=== PATIENT | female | born 1955 | race Caucasian/White ===

== ENCOUNTER → 2020-05-29 08:01 | Outpatient (CLI) | payer OTHER, SELFPAY ==
[2020-05-29 08:14] VITALS: BP 105/67; PULSE 62; RESP 18; TEMP 36.4; O2SAT 98
[2020-05-29 08:46] VITALS: BP 111/53; PULSE 62; RESP 12; O2SAT 98
--- NOTE | 2020-05-29 08:49 | PDOC.PAIN ---
Pain Clinic Procedure Note Procedure Note Procedure Note: Date of service: 05/29/20 Lumbar/Sacral Medial Branch Blocks JABIER RENO has been [facility] the [facility] for lumbar/sacral medial branch blocks. COMMENTS: She was evaluated in our clinic on 04/24/20. She had LMBBs and RFA in [place] several years ago with excellent [facility] long term care relief. She has an allergy to Iodine contrast. She has held the Plavix and ASA. She will restart the Plavix tonight at 9PM and the ASA tomorrow morning. DX: Lumbosacral spondylosis without myelopathy Patient was interviewed and the medical record reviewed. There were no medical, pharmacologic, radiographic or other structural contraindications to attempting fluoroscopically guided local anesthetic lumbar/sacral medial branch blocks. Risks and expected side effects as well as potential benefit of the procedure were reviewed and voiced concerns addressed. The printed consent form was signed and witnessed. Standard time-out procedure was performed. Patient was placed in the prone position on the fluoroscopy table and automated blood pressure cuff and pulse oximeter applied. The skin entry points for approaching the anatomic target points of the segmental medial branches of bilateral L3-L5DR were identified with fluoroscopy and marked. Following thorough Chlorhexadine preparation of the skin and draping, a 25 gauge 3.5 spinal needle was placed under fluoroscopic guidance down on to the target point for each respective segmental medial branch.Position was confirmed in A/P, oblique and lateral views. At this point I injected 0.5cc of 0.5% Bupivacaine at each segmental sensory nerve. Vital signs were stable throughout the procedure and were as recorded in the docflowsheet by the nursing staff. Follow up plans and appointments were discussed and was instructed to keep careful note of how the usual pain was modified by these injections. Specifically was asked to keep a pain diary for the next 24 hours using a numeric pain scale of 0-10 and report these results at the follow-up visit. Post procedure instruction was given as documented in the nursing documentation and having met discharge criteria. Patient was discharged from the [facility]. Based on the medial branches blocked today, if the patient has adequate relief and we are able to proceed to radiofrequency ablation, the treatment should result in the denervation of the bilateral L4-L5 and L5-S1 FACET JOINTS. We would expect to denervate a total of 4 facets during the radiofrequency ablation. COMMENTS: She will call back with her 1-4 hour post-procedure pain scores for the low back. Jessee Mayers DO, MPH Pain Management CC: Loida Garcia
--- NOTE | 2020-05-29 08:50 | DI.RAD_ITS ---
EXAM: XR PAIN CLINIC LUMBAR SP 2V CLINICAL HISTORY: DX: Lumbar Spondylosis,LUMBAR MEDIAL BRANCH BLOCK TECHNIQUE: Fluoroscopy was provided for the referring physician for guidance with performing injecti on procedure. COMPARISON: No exams were available for comparison FINDINGS: Please see procedure note for details. Fluoro time: 34 seconds RADIATION DOSE DELIVERED:
[2020-05-29] MEDS: Bupivacaine 0.5% Pres-Free 10 ML VIAL IJ (09:06)
== END ==
PROVIDERS: PCP Family Medicine; Visit Provider Preventive Medicine Occupational Medicine
DX: M47.817 Spondylosis without myelopathy or radiculopathy, lumbosacral region (principal)
CPT/HCPCS: 64493; 64494; 72100

== ENCOUNTER 2020-07-05 10:39 | Outpatient (CLI) | payer OTHER, SELFPAY ==
--- NOTE | 2020-07-05 06:00 | DI.RAD_ITS ---
EXAM: XR PAIN CLINIC LUMBAR SP 2V CLINICAL HISTORY: Dx: Lumbar Spondylosis TECHNIQUE: 2D and realtime digital imaging was performed. CONTRAST MATERIAL: Refer to procedure report. COMPARISON: No exams were available for comparison FINDINGS: Fluoroscopy was provided for Dr. Mayers during the performance of a bilateral medial branch block. Pl ease refer to the procedure report for complete details. Fluoro time: 47.6 seconds IMPRESSION:
[2020-07-05 10:54] VITALS: BP 110/64; PULSE 60; RESP 17; TEMP 36.5; O2SAT 96
[2020-07-05 11:29] VITALS: BP 113/62; PULSE 60; RESP 14; O2SAT 99
[2020-07-05] MEDS: Lidocaine 2% Pres-Free 5 ML VIAL IJ (11:30)
--- NOTE | 2020-07-05 11:59 | PDOC.PAIN ---
Pain Clinic Procedure Note Procedure Note Procedure Note: Date of service: July 05, 2020 Lumbar/Sacral Medial Branch Blocks JABIER RENO has been referred to the [facility] for lumbar/sacral medial branch blocks. COMMENTS: She did very well with the first LMBBs. She is allergic to Iodine contrast, thus this procedure will be completed without contrast enhancement. Dx: Lumbosacral spondylosis without myelopathy Patient was interviewed and the medical record reviewed. There were no medical, pharmacologic, radiographic or other structural contraindications to attempting fluoroscopically guided local anesthetic lumbar/sacral medial branch blocks. Risks and expected side effects as well as potential benefit of the procedure were reviewed and voiced concerns addressed. The printed consent form was signed and witnessed. Standard time-out procedure was performed. Patient was placed in the prone position on the fluoroscopy table and automated blood pressure cuff and pulse oximeter applied. The skin entry points for approaching the anatomic target points of the segmental medial branches of bilateral L3-L5DR were identified with fluoroscopy and marked. Following thorough Chlorhexadine preparation of the skin and draping and 1% lidocaine infiltration of the skin entry points and subcutaneous tissues, a 25 gauge 3.5 spinal needle was placed under fluoroscopic guidance down on to the target point for each respective segmental medial branch.Position was confirmed in A/P, oblique and lateral views. At this point I injected 0.5ml of 2% Lidocaine at each segmental nerve. Vital signs were stable throughout the procedure and were as recorded in the docflowsheet by the nursing staff. Follow up plans and appointments were discussed and was instructed to keep careful note of how the usual pain was modified by these injections. Specifically was asked to keep a pain diary for the next 24 hours using a numeric pain scale of 0-10 and report these results at the follow-up visit. Post procedure instruction was given as documented in the nursing documentation and having met discharge criteria. Patient was discharged from the [facility]. Based on the medial branches blocked today, if the patient has adequate relief and we are able to proceed to radiofrequency ablation, the treatment should result in the denervation of the bilateral L4-L5 and L5-S1 FACET JOINTS. We would expect to denervate a total of 4 facets during the radiofrequency ablation. COMMENTS: She will call back with the 1-4 hour post-procedure pain scores. Jessee Mayers DO, MPH Pain Management CC: Loida Garcia
== END 2020-07-05 10:40 | disposition home or self-care (01) ==
LOC: PC 10:40
PROVIDERS: PCP Family Medicine; Visit Provider Preventive Medicine Occupational Medicine
DX: M47.817 Spondylosis without myelopathy or radiculopathy, lumbosacral region (principal)
CPT/HCPCS: 64493; 64494; 72100

== ENCOUNTER 2020-09-11 12:47 | Outpatient (CLI) | payer OTHER, SELFPAY ==
[2020-09-11 12:55] VITALS: BP 128/66; PULSE 62; RESP 17; TEMP 36.5; O2SAT 98
[2020-09-11] MEDS: Lactated Ringers 1,000 ML 80 ML IV (13:26)
[2020-09-11] MEDS: fentaNYL 100 MCG/2 ML VIAL IVP (13:40)
[2020-09-11] MEDS: Midazolam 2 MG/2 ML VIAL IVP (13:40)
[2020-09-11] MEDS: methylPREDNISolone ACETATE 40 MG/ML VIAL IJ (14:15)
[2020-09-11] MEDS: Lidocaine 2% Pres-Free 5 ML VIAL IJ (14:15)
[2020-09-11] MEDS: Lidocaine 1% Pres-Free 30 ML VIAL IJ (14:15)
[2020-09-11] MEDS: Bupivacaine 0.5% Pres-Free 10 ML VIAL IJ (14:16)
--- NOTE | 2020-09-11 14:17 | PDOC.PAIN_ITS ---
Pain Clinic Procedure Note Procedure Note Procedure Note: Bilateral Lumbar Radiofrequency with Coolief Machine PROCEDURE NOTE Date of Service: September 11, 2020 Patient: JABIER RENO Provider: Merlene Cabrera MD Pre Operative Diagnosis: lumbar spondylosis Post Operative Diagnosis: same as above PROCEDURE: Radiofrequency Ablation of medial branches - L3, L4, L5-DR Bilaterally JABIER RENO was brought into the fluoroscopy suite and positioned into the prone position on the fluoroscopy table and allowed to adjust to a position of comfort. A grounding pad was placed on the right thigh. The lumbar region was widely prepped with a chloraprep solution, allowed to air dry and draped in standard sterile surgical fashion. Local anesthesia was provided by 15 mL of 1% lidocaine delivered with a 25g needle. A 17g 100mm radiofrequency introducer needle was placed to the planned anatomic targets guided with intermittent fluoroscopy with a perpendicular approach to terminally place at the junction of the superior articular process and the transverse process of the bilateral L3, L4, and the base of the sacral ala on the bilateral for the L5 medial branch nerve. The stylets were removed and radiofrequency probes with a 4mm active tip were then inserted. Needle tip position of the probes was verified in the AP, oblique, and lateral views. At each site, the medial branch nerve was stimulated at 2 Hz to a maximum 1-2 volts determined to finalize safe needle and electrode placement. The patient was awake and responsive during this portion of the procedure. Each target was anesthetized with 1mL of 2% lidocaine for anesthesia for lesioning and then each target was lesioned at 80 degrees Celsius for 2 minutes and 30 seconds. Tissue impedences were noted to be between 250 and 500 Ohms. Electrodes and needles were then removed and bandages placed over the needle placement sites, the patient then returned to the supine position on a stretcher and transported to the recovery room without hemodynamic, neurologic, or allergic reactions. Fluoroscopic images were printed for hard copy recording and digitally archived. POST PROCEDURE EVALUATION: IMPRESSION: 1. Patient received total of 1mg of IV versed and 25mcg of IV Fentanyl for this procedure 2. She also received a mixture of 0.5% Bupivocaine (2cc) and 40mg/ml depomedrol (1mg) post RF lesioning, 0.5cc solution at each site, to decrease risk of post- RF neuritis 3. Pre-procedure VAS score 4/10, post-procedure VAS pain level 0/10. Follow up plans and appointments were discussed with the JABIER . Post procedure instruction was given as documented in nursing documentation and having met discharge criteria, JABIER was discharged from the [facility]. COMMENTS: No complications. F/U with our office as needed. I personally performed this entire procedure. Merlene Cabrera MD Attending Physician
[2020-09-11 14:18] VITALS: BP 142/62; PULSE 65; RESP 14; O2SAT 99
--- NOTE | 2020-09-11 14:30 | DI.RAD_ITS ---
Exam(s) XR PAIN CLINIC LUMBAR SP 2V EXAM: XR PAIN CLINIC LUMBAR SP 2V CLINICAL HISTORY: Dx: Lumbar Spondylosis TECHNIQUE: 2D and realtime digital imaging was performed. COMPARISON: No exams were available for comparison FINDINGS: C-arm fluoroscopy was utilized by Dr. Cabrera during bilateral RF ablation performed at L3-4 L4-5 and L5-S 1. Hard copy show needle placement at each of these sites. IMPRESSION: RADIATION DOSE DELIVERED: shauna Gonzalez=19.9 mGy mGy
== END 2020-09-11 12:48 | disposition home or self-care (01) ==
LOC: PC 12:48
PROVIDERS: PCP Family Medicine; Visit Provider Internal Medicine
DX: M47.816 Spondylosis without myelopathy or radiculopathy, lumbar region (principal)
CPT/HCPCS: 64635; 64636; 72100; J1030; J2250; J3010

== ENCOUNTER 2020-10-15 11:11 | Day surgery (SDC) | payer OTHER, SELFPAY ==
--- NOTE | 2020-10-14 22:09 | HPE_ITS ---
Date of service: 10/15/20 Assessment and Plan Assessment and plan (1) Posterior subcapsular age-related cataract of left eye: Status: Acute Assessment and plan: Visually significant cataract, plan cataract extraction with lens implantation (2) Cortical cataract of left eye: Status: Acute Assessment and plan: Visually significant cataract, plan cataract extraction with lens implantation (3) Nuclear sclerotic cataract of left eye: Status: Acute Assessment and plan: Visually significant cataract, plan cataract extraction with lens implantation History of Present Illness History of Present Illness Chief Complaint: Decreased vision left eye Narrative: Progressive painless decreased vision left eye [facility] Medical History Atherosclerosis of coronary artery without angina pectoris Atrophic vaginitis Breast lump Chronic obstructive lung disease Depressive disorder Hidradenitis suppurativa Hx of fracture of clavicle Left plate and screws Hyperlipidemia Hypersomnia Hypertensive disorder Low back pain Myocardial infarction 2004-/U with cardiology Dr. Cabral 08/2020 Nicotine dependence Obstructive sleep apnea syndrome Pseudocholinesterase deficiency Pt. states the only thing i know i can't have is Anectine (succinylcholine) Psychophysiologic insomnia Surgical History History of cardiac catheterization 2009, 2014, 2018 History of cataract surgery History of colonoscopy History of esophagogastroduodenoscopy (EGD) History of hysterectomy History of nasal surgery History of surgery stent replacement in 2014 History of tubal ligation Social History Smoking/Tobacco Use Status: Current every day Tobacco Type: cigarettes Smoking risk assessment performed?: Yes Alcohol Intake: never Drug use: Never Substance use type: does not use Household members: significant other Housing: apartment Number of Children: 4 current occupation: [employer] What type of physical activity do you participate in: walking and independent ambulation Do you feel safe at home: Yes Do you feel safe in your relationship?: Yes Meds Allergies and Home Medications Allergies Allergy/AdvReac Type Severity Reaction Status Date / Time shellfish derived Allergy Severe Anaphylaxsi Unverified 10/12/20 09:00 s Iodinated Contrast Media Allergy Unknown Hives Unverified 10/12/20 09:00 Penicillins Allergy Unknown Hives Unverified 10/12/20 09:00 succinylcholine Allergy Unknown Other (See Unverified 10/12/20 09:00 [From Anectine] Comment) Home Medications Medication Instructions Recorded Confirmed Type albuterol sulfate 2 puff INHALATION Q6H PRN 03/14/20 10/12/20 History amlodipine 10 mg PO DAILY 03/14/20 10/12/20 History aspirin [Aspir-81] 81 mg PO DAILY 03/14/20 10/12/20 History atorvastatin 80 mg PO DAILY 03/14/20 10/12/20 History bupropion HCl 300 mg PO QAM 03/14/20 10/12/20 History carvedilol 25 mg PO BID 03/14/20 10/12/20 History clopidogrel 75 mg PO DAILY 03/14/20 10/12/20 History cyclobenzaprine 10 mg PO TID 03/14/20 10/12/20 History ezetimibe 10 mg PO DAILY 03/14/20 10/12/20 History hydrochlorothiazide 25 mg PO DAILY 03/14/20 10/12/20 History hydroxyzine HCl 25 mg PO TID PRN 03/14/20 10/12/20 History ibuprofen 800 mg PO TID PRN 03/14/20 10/12/20 History losartan 100 mg PO DAILY 03/14/20 10/12/20 History nitroglycerin 0.4 mg SUBLINGUAL Q5M PRN 03/14/20 10/12/20 History umeclidinium-vilanterol [Anoro 1 inh INHALATION DAILY 03/14/20 10/12/20 History Ellipta] Exam [facility] Head: normocephalic Eyes General: appearance normal, both eyes and all related structures Alignment and Position: alignment normal Eyelids: eyelids normal Conjunctivae: conjunctivae normal Sclera: sclerae normal Cornea: corneas normal Pupils: PERRL EOM: EOM intact bilaterally Direct ophthalmoscopy: anterior chamber normal Other: Left Eye: moderat nuclear with severe cortical and PSC cataract Neck Neck: normal visual inspection and no lymphadenopathy Chest Chest: normal inspection of the chest Resp Effort & Inspection: normal respiratory effort Auscultation: clear to auscultation bilaterally Cardio Rate: regular rate Rhythm: regular rhythm GI Inspection: normal to inspection Auscultation: normal bowel sounds Extrem General: normal to inspection
[2020-10-15] MEDS: Tropicam./Phenyleph. (1/2.5%) 5 ML BTL OS ×3 (11:33→11:47)
[2020-10-15 11:48] VITALS: BP 146/64; PULSE 97; RESP 16; TEMP 36.4; O2SAT 96
--- NOTE | 2020-10-15 12:47 | W.ANESPRE ---
General Info Date of Service Date Performed: 10/15/20 Height: 5 ft 1 in Weight: 74.9 kg Body Mass Index (BMI): 31.1 Surgical Procedure: Operation Date: 10/15/20 12:55 Proposed Procedures Side Surgeon p Cataract Extraction with IOL Implant Left Uri Uribe MD Meds Allergies and Home Medications Allergies Allergy/AdvReac Type Severity Reaction Status Date / Time shellfish derived Allergy Severe Anaphylaxsi Unverified 10/15/20 11:40 s Iodinated Contrast Media Allergy Unknown Hives Unverified 10/15/20 11:40 Penicillins Allergy Unknown Hives Unverified 10/15/20 11:40 succinylcholine Allergy Unknown Other (See Unverified 10/15/20 11:40 [From Anectine] Comment) Home Medication Medication Instructions Recorded albuterol sulfate 2 puff INHALATION Q6H PRN 03/14/20 amlodipine 10 mg PO DAILY 03/14/20 aspirin [Aspir-81] 81 mg PO DAILY 03/14/20 atorvastatin 80 mg PO DAILY 03/14/20 bupropion HCl 300 mg PO QAM 03/14/20 carvedilol 25 mg PO BID 03/14/20 clopidogrel 75 mg PO DAILY 03/14/20 cyclobenzaprine 10 mg PO TID 03/14/20 ezetimibe 10 mg PO DAILY 03/14/20 hydrochlorothiazide 25 mg PO DAILY 03/14/20 hydroxyzine HCl 25 mg PO TID PRN 03/14/20 ibuprofen 800 mg PO TID PRN 03/14/20 losartan 100 mg PO DAILY 03/14/20 nitroglycerin 0.4 mg SUBLINGUAL Q5M PRN 03/14/20 umeclidinium-vilanterol [Anoro 1 inh INHALATION DAILY 03/14/20 Ellipta] Current Visit Medications: Current Medications Generic Name Dose Route Start Last Admin Trade Name Freq PRN Reason Stop Dose Admin Acetaminophen 1,000 mg 10/15/20 06:00 Acetaminophen 500 Mg Tab PO Q4H PRN PRN Miscellaneous Medication 0 ml 10/15/20 06:00 Prednisolone 1%, Moxifloxacin 0.5%, Nepafenac 0.1% 5ml Btl OS DIRECTED SOFY Miscellaneous Medication 0 ml 10/15/20 06:00 10/15/20 11:47 Tropicam./Phenyleph. (1/2.5%) 5 Ml Btl OS 1 drp DIRECTED SOFY Administration Tetracaine HCl 0 ml 10/15/20 06:00 Tetracaine 0.5% 4 Ml Btl OS DIRECTED SOFY PFSH Active Problems Active Problems: Problem Status Onset Code Posterior subcapsular age-related cataract of left eye H25.042 Cortical cataract of left eye H26.9 Nuclear sclerotic cataract of left eye H25.12 Medical History Medical History Atherosclerosis of coronary artery without angina pectoris Atrophic vaginitis Breast lump Chronic obstructive lung disease Depressive disorder Hidradenitis suppurativa Hx of fracture of clavicle Left plate and screws Hyperlipidemia Hypersomnia Hypertensive disorder Low back pain Myocardial infarction 2004-/ with cardiology Dr. Cabral 08/2020 Nicotine dependence Obstructive sleep apnea syndrome Pseudocholinesterase deficiency Pt. states the only thing i know i can't have is Anectine (succinylcholine) Psychophysiologic insomnia Surgical History Surgical History History of cardiac catheterization 2009, 2014, 2018 History of cataract surgery History of colonoscopy History of esophagogastroduodenoscopy (EGD) History of hysterectomy History of nasal surgery History of surgery stent replacement in 2014 History of tubal ligation Tobacco Smoking/Tobacco Use Status: Current every day Tobacco Type: cigarettes Alcohol Alcohol Intake: never Substance Use Substance use: Never Substance use type: does not use Vital Signs and Lab Results Vital Signs Most Recent Vital Signs in EMR: Most Recent Vital Signs Temp Pulse Resp BP Pulse Ox 36.4 C L 97 H 16 146/64 H 96 10/15/20 11:48 10/15/20 11:48 10/15/20 11:48 10/15/20 11:48 10/15/20 11:48 Lab Results Blood Type / Crossmatch: No Data to Display Complete Blood Count: No Data to Display Complete Metabolic Panel: No Data to Display Liver Function Panel: No Data to Display Coagulation Panel: No Data to Display Cardiac Panel: No Data to Display Arterial Blood Gas: No Data to Display Venous Blood Gas: No Data to Display Pancreas Panel: No Data to Display Thyroid Panel: No Data to Display Infectious Disease: No Data to Display Blood Cultures: No Data to Display Toxicology Panel: No Data to Display Anesthesia Assessment and Plan Anesthesia History Personal History: Pseudocholinesterase Deficiency Family History: Pseudocholinesterase Deficiency Exercise Tolerance Exercise Tolerance: Metabolic Equivalents>4 Pertinent Negatives Pertinent Negatives: No Symptoms of GERD, No Major Cardiovascular Symptoms or Complaints, No Major Pulmonary Symptoms or Complaints and No History of CVA/TIA Cardiac & Pulmonary Exam Cardiac Exam: Normal S1/S2 Heart Sounds Pulmonary Exam: Clear Bilateral Breath Sounds Airway Exam Known Difficult Airway: No Mallampati Class: 2 Mouth Opening: Normal (> 3cm) Thyromental Distance: Greater than 3 cm Neck Range of Motion: Full ROM Neck Circumference: Normal Teeth Condition: Normal Dentition ASA Classification ASA Score: ASA 3 Emergency Case?: No NPO Status NPO Status: NPO Clears >2 hours, Solids >8 hours Anesthesia Plan Resuscitation Status: Full Code Anesthesia Technique: MAC Anesthesia Airway Planned: Natural Airway Monitors Used: Standard Monitors
[2020-10-15 12:50] VITALS: BMI 31.1
[2020-10-15] MEDS: Tetracaine 0.5% 4 ML BTL OS (13:03)
[2020-10-15] MEDS: Balanced Salt Soln.-PLUS 500 ML BAG (13:04)
[2020-10-15] MEDS: Lidocaine 1% Pres-Free 5 ML VIAL (13:05)
[2020-10-15] MEDS: Duovisc Viscoelastic System EACH 1 EACH (13:05)
[2020-10-15] MEDS: Lidocaine 2% Jelly 6 ML SYR (13:06)
[2020-10-15] MEDS: Povidone-Iodine Ophth 30 ML BTL (13:07)
[2020-10-15] MEDS: Trypan Blue 0.06% 0.5 ML SYR (13:08)
--- NOTE | 2020-10-15 13:23 | W.PM.DSUDISC ---
Discharge Plan Disposition Patient Disposition: HOME Condition: Good Discharge Details Reason For Visit: CATARACT Attending Provider: Uri Uribe Primary Care Provider: Loida Garcia Home Meds and New Rx's Prescriptions: No Action cyclobenzaprine 10 mg Tablet 10 mg PO TID RF: 0 atorvastatin 80 mg Tablet 80 mg PO DAILY RF: 0 carvedilol 25 mg Tablet 25 mg PO BID RF: 0 clopidogrel 75 mg Tablet 75 mg PO DAILY RF: 0 aspirin [Aspir-81] 81 mg Tablet,Delayed Release (Dr/Ec) 81 mg PO DAILY RF: 0 amlodipine 10 mg Tablet 10 mg PO DAILY RF: 0 albuterol sulfate 90 mcg/actuation Hfa Aerosol Inhaler 2 puff INHALATION Q6H PRNRF: 0 bupropion HCl 300 mg Tablet Extended Release 24 Hr 300 mg PO QAM RF: 0 Anoro Ellipta 62.5-25 mcg/actuation Blister With Device 1 inh INHALATION DAILY RF: 0 ibuprofen 800 mg Tablet 800 mg PO TID PRNRF: 0 nitroglycerin 0.4 mg Tablet, Sublingual 0.4 mg SUBLINGUAL Q5M PRNRF: 0 hydroxyzine HCl 25 mg Tablet 25 mg PO TID PRNRF: 0 hydrochlorothiazide 25 mg Tablet 25 mg PO DAILY RF: 0 losartan 100 mg Tablet 100 mg PO DAILY RF: 0 ezetimibe 10 mg Tablet 10 mg PO DAILY RF: 0 Discharge Instructions Stand Alone Forms: Post-op Topical Cataract, Mauricio Urena (DSU) Discharge Orders Discharge Orders: Discharge Order (Routine); Ordered 10/15/20 Ordered By: Uri Uribe DS: Diagnosis Discharge Diagnosis (1) Posterior subcapsular age-related cataract of left eye: Status: Resolved (2) Cortical cataract of left eye: Status: Resolved (3) Nuclear sclerotic cataract of left eye: Status: Resolved
--- NOTE | 2020-10-15 13:24 | ROE_ITS ---
Date of service: 10/15/20 Time of Service: 13:24 Operative Note Operative Note DATE OF PROCEDURE: 10/15/20 PRE-OP DIAGNOSIS: Nuclear/cortical/posterior subcapsular cataract, left eye Poor red reflex, left eye secondary to cataract POST-OP DIAGNOSIS: same PROCEDURE: Cataract extraction using phacoemulsification with intraocular lens implant, left eye, using capsular staining with Vision Blue SURGEON: Uri Uribe ANESTHESIA TYPE: Local By Surgeon and MAC Refer to Anesthesia Record COMPLICATIONS: None Patient was transported to: same day Patient's condition: stable Implants: Lalo [employer] Lalo / [employer] Tecnis [id number] Indications: Progressive decreased vision due to cataract, left eye, with poor red reflex Procedure Description: CATARACT SURGERY OPERATIVE REPORT PREOPERATIVE DIAGNOSIS: 1. Nuclear/cortical/posterior subcapsular cataract, left eye 2. Poor red reflex secondary to #1 POSTOPERATIVE DIAGNOSIS: Same OPERATION: 1. Cataract extraction using phacoemulsification with posterior chamber intraocular lens implant, left eye. 2. Capsular staining with Vision Blue IOL: IOL Behavioral Modification Assistant/Model: Lalo & Lalo / BALBIR Tecnis [id number] IOL Power: + 23.5 diopters IOL Serial Number: [id number] Optic Diameter: 6.0 mm Haptic/Overall Diameter: 13.0 mm PHACO INFO: Kanu HydroLogexurion Vision System with OZil and Active Fluidics Cumulative Dispersed Energy (CDE): 7.39 seconds SURGEON: Uri Uribe MD, DANTE ANESTHESIA: Monitored A [facility] (MAC), with local sub-tenon's anesthetic infiltration COMPLICATIONS: None SPECIMENS: None INDICATIONS FOR PROCEDURE: The patient is a 65-year-old lady with history of diminished visual acuity in her left eye secondary to the development of significant nuclear/cortical/posterior subcapsular cataract. The option of cataract surgery was offered to the patient and she felt she was symptomatic enough that she wished to proceed. PROCEDURE: The correct surgical eye was identified and marked as the left eye and the pupil was dilated in the preoperative area using mydriatics and cycloplegics. The dilated pupil size was 7.0 mm. She elected to proceed without oral sedation. The patient was brought to the operating room where cardiopulmonary monitoring was instituted and surgical time-out was performed, confirming the correct operative eye and IOL power. Topical anesthesia was administered and ophthalmic povidone-iodine 5% was instilled into the conjunctival fornices. Lidocaine gel was applied to the cornea and the cristopher-ocular area was prepped with Betadine 10% solution and draped in the usual sterile fashion for intraocular surgery, including an aperture drape. A Tegaderm transparent film dressing was cut in half and used to cover the lashes and lid margins. Care was taken to sequester the lashes and lid margins under the Tegaderm dressing. A lid speculum was placed between the lids of the operative eye and the Ruy-Casper operating microscope was maneuvered into position. Alvarez scissors were then used to make a conjunctival buttonhole approximately 6mm posterior to the limbus in the inferonasal quadrant. Blunt dissection was carried out to expose bare sclera, and a blunt-tipped sub-tenon?s anesthesia cannula was introduced and passed posteriorly along the globe where non- preserved plain lidocaine was injected into posterior sub-Tenon?s space. A sideport knife was used to make a paracentesis port superiorly/supe riortemporally. Intraocular phenylephrine/lidocaine was injected int the anterior chamber.. Air was then injected into the anterior chamber, followed by Vision Blue, which was painted over the anterior capsule and then irrigated out using BSS. The anterior chamber was filled with viscoelastic. A 2.4mm keratome knife was used to create a half-thickness groove at the limbus and then to construct a three-plane near-clear corneal tunnel extending 2.0mm into clear cornea at the 3:00 position. A flap was raised on the anterior capsule and capsulorhexis forceps were used to complete a continuous curvilinear capsulorhexis of 5.5 mm. Balanced salt solution was then used to perform cortical cleaving hydrodissection and nuclear hydrodelineation until the lens could be freely rotated within the capsular bag. The lens nucleus was then disassembled and removed within the capsular bag and iris plane using phacoemulsification. Residual cortical material was removed using the 45-degree angled silicone I/A tip with 0.3mm port. The posterior capsule was carefully polished to remove as much residual lens epithelial cells as safely possible. The capsular bag was then inflated and the anterior chamber deepened with viscoelastic. The lens implant described above was inserted into the capsular bag using the BALBIR Durant Injector. A Kuglen hook was used to dial the IOL into position. Residual viscoelastic was then removed first from posterior to the IOL, then from the anterior chamber using the I/A handpiece. The lens implant was noted to center nicely within the capsular bag. The incisions were stromally hydrated, and the anterior chamber was reformed using BSS. Then 0.5cc of moxifloxacin 1.0mg/ml were injected into the capsular bag and anterior chamber. The incisions were checked with a Weck spear and found to be secure. Several drops of ophthalmic povidone-iodine 5% were then applied to the eye followed by two drops of Imprimis combination prednisolone/moxifloxacin/nepafenac solution. The drapes were removed and a clear plastic protective eye shield was placed over the eye. The patient was then returned to Same Day Surgery in stable condition.
[2020-10-15 13:25] VITALS: BP 146/70; PULSE 63; RESP 16; TEMP 36.3; O2SAT 97
--- NOTE | 2020-10-15 14:29 | W.ANESPOSTOP ---
Postoperative Evaluation Date, Time and Location Date Performed: 10/15/20 Time Performed: 14:29 Patient Location: Day Surgery Unit Vital Signs Most Recent Imported Vital Signs: Most Recent Vital Signs Temp Pulse Resp BP Pulse Ox 36.3 C L 63 16 146/70 H 97 10/15/20 13:25 10/15/20 13:25 10/15/20 13:25 10/15/20 13:25 10/15/20 13:25 Pain Score Most Recent Pain Score: Most Recent Pain Score Pain Level 0 10/15/20 11:48 Assessment Mental Status: Awake (Alert & Oriented to Patient Baseline) Airway and Respiratory Function: Patent airway with normal (patient baseline) respiratory exam Cardiovascular Function: Hemodynamically Stable Hydration Status: Adequately Hydrated Nausea & Vomiting: No Nausea or Vomiting Pain: Pt. Denies Any Pain Peripheral Nerve Block: Other (Local by Dr. Uribe)
== END 2020-10-15 13:54 | disposition home or self-care (01) ==
PROVIDERS: PCP Family Medicine; Visit Provider Ophthalmology
PROC: (CPT 66984; principal; 2020-10-15 12:45)
DX: H25.042 Posterior subcapsular polar age-related cataract, left eye (principal); I25.10 Atherosclerotic heart disease of native coronary artery without angina pectoris; I10 Essential (primary) hypertension; G47.33 Obstructive sleep apnea (adult) (pediatric)
CPT/HCPCS: 66984; V2632

== ENCOUNTER 2020-11-27 13:26 | Outpatient (CLI) | payer OTHER, SELFPAY ==
--- NOTE | 2020-11-27 06:00 | DI.RAD_ITS ---
Exam(s) XR PAIN CLINIC LUMBAR SP 2V EXAM: XR PAIN CLINIC LUMBAR SP 2V CLINICAL HISTORY: Dx: Lumbar Radiculopathy TECHNIQUE: 2D and realtime digital imaging was performed. CONTRAST MATERIAL: Refer to procedure report. COMPARISON: No exams were available for comparison FINDINGS: Fluoroscopy was provided for Dr. Cabrera during the performance of a lumbosacral epidural injection. Ple ase refer to the procedure report for complete details. Ka,r=3.91 mGy IMPRESSION:
[2020-11-27 13:32] VITALS: BP 104/54; PULSE 86; RESP 18; TEMP 36.6; O2SAT 96
--- NOTE | 2020-11-27 14:24 | PDOC.PAIN ---
Pain Clinic Procedure Note Procedure Note Procedure Note: Lumbar Epidural Steroid Injection Procedure Note Pre-operative diagnosis: lumbar radiculopathy Post-operative diagnosis: same as above COMMENTS:patient has predominantly left leg pain but on occasional with right leg pain. patient has alllergic reaction to contrast medium used during her cardiac catherization which resulted in diffuse hives and throat almost closing up. she reports she had tolerated contrast used for her facet injection by pain provider in [place], these records are not available for review. patient has had previous injections at our pain clinic where contrast medium was omitted. Asa Pan has been referred to the [facility] for lumbar epidural steroid injection. The patient was greeted by the nurse who verified patients name and . Patient was then taken to the fluoroscopy suite. The patient was interviewed and the medial record reviewed. There were no medical, pharmacologic, radiographic, or other structural contraindications to attempting fluoroscopically guided lumbar epidural steroid injection. Risks and expected side effects as well as potential benefits of the procedure were reviewed and voiced concerns expressed. The patient consent form was signed and witnessed. Standard patient time-out procedure was performed. The patient was placed in the prone position on the fluoroscopy table and automated blood pressure cuff and pulse oximeter applied. The skin entry point for entering/approaching the epidural space by a L5-S1 and marked. Following thorough chlorhexadine preparation of the skin and draping and 1% lidocaine infiltration of the skin entry point and subcutaneous tissues, a 18 gauge Touhy needle was placed under fluoroscopic guidance and with loss of resistance technique into the epidural space. Needle tip placement and depth were aided and confirmed by fluoroscopy. There was no paresthesia or return of blood or CSF through the needle. 1 cc's of Omnipaque 240 was injected with clear epidural spread confirmed with fluoroscopy. 15mg preservative free dexamethasone was injected. thsi is followed by 1cc of preservative free 1% lidocaine and 0.5cc of preservative free normal saline. There was not any unusual discomfort expressed by Asa Pan. Patient's vital signs were stable throughout the procedure and were as recorded in nursing records. Follow up plans and appointments were discussed with patient. Post procedure instruction was given as documented in nursing records and having met discharge criteria and was discharged from the [facility] Management Center. COMMENTS: If this procedure is helpful, it can be completed up to 3 times per 12 months. Pre-procedure vAS score 9 out of 10 and post -procedure vas score 0/10. Merlene Cabrera MD Pain Management
[2020-11-27] MEDS: Dexamethasone Sod. Phos./Pres-Free 10 MG/ML VIAL (14:32)
[2020-11-27 14:34] VITALS: BP 96/48; PULSE 67; RESP 18; O2SAT 97
== END 2020-11-27 13:27 | disposition home or self-care (01) ==
LOC: PC 13:26
PROVIDERS: PCP Family Medicine; Visit Provider Internal Medicine
DX: M54.16 Radiculopathy, lumbar region (principal)
CPT/HCPCS: 62323; 72100

== ENCOUNTER 2020-12-25 15:47 | Outpatient (CLI) | payer OTHER, SELFPAY ==
--- NOTE | 2020-12-25 15:30 | DI.RAD_ITS ---
Exam(s) XR CERVICAL SPINE COMP 4-5V EXAM: XR CERVICAL SPINE COMP 4-5V CLINICAL HISTORY: neck pain, rule out spondylosis/spondylolisthesis, cervicalgia-M54.2. TECHNIQUE: 2D digital imaging was performed. COMPARISON: No exams were available for comparison FINDINGS: No evidence of acute fracture nor listhesis. Partial fusion posterior osseous elements at C 4-5 leve l. Linear lucency through C5 vertebral body is related to degenerative changes. Also Luschka joint osteophytes at this level and disc space narrowing at C5-6 and C6-7 levels noted. Mild degenerative anterolisthesis of C4 upon C5. Also fusion of posterior osseous elements at C2 and C3 levels. Incid entally noted is a fusion plate in the left clavicle. No cervical ribs. IMPRESSION: Multilevel chronic degenerative disc disease and facet arthropathy. There is also multilevel facet f usion evident. DATA REPOSITORY: RADIATION DOSE DELIVERED:
== END 2020-12-25 16:07 ==
PROVIDERS: PCP Family Medicine; Visit Provider Internal Medicine
DX: M50.321 Other cervical disc degeneration at C4-C5 level (principal); M12.88 Other specific arthropathies, not elsewhere classified, other specified site; M43.22 Fusion of spine, cervical region
CPT/HCPCS: 72050

== ENCOUNTER → 2021-02-07 01:56 | Outpatient (CLI) | payer OTHER, SELFPAY ==
--- NOTE | 2021-02-07 06:00 | DI.RAD_ITS ---
Exam(s) XR PAIN CLINIC LUMBAR SP 2V EXAM: XR PAIN CLINIC LUMBAR SP 2V CLINICAL HISTORY: Dx: Cluneal Neuropathy TECHNIQUE: 2D and realtime digital imaging was performed. CONTRAST MATERIAL: Refer to procedure report. COMPARISON: No exams were available for comparison FINDINGS: Fluoroscopy was provided for Dr. Mayers during the performance of a nerve block. Please refer to the procedure report for complete details. Ka,r=4.13 mGy IMPRESSION:
[2021-02-07 12:55] VITALS: BP 126/56; PULSE 61; RESP 18; O2SAT 97
[2021-02-07 13:37] VITALS: PULSE 67; O2SAT 97
[2021-02-07 13:40] VITALS: BP 124/55; PULSE 62; RESP 13; O2SAT 97
--- NOTE | 2021-02-07 13:46 | PDOC.PAIN_ITS ---
Pain Clinic Procedure Note Procedure Note Procedure Note: ULTRASOUND GUIDED LEFT TROCHANTERIC BURSA INJECTIONS Pre-Procedural Evaluation: Asa Pan has been referred to the [facility] for an Ultrasound Guided left trochanteric bursa injection for a chief complaint of left hip pain. Pre-procedure Pain Score: 6/10 Dx: Trochanteric bursitis Patient was interviewed and the medical record reviewed. There were no medical, pharmacologic, radiographic, or other structural contraindications to preforming an ultrasound guided injection. Risks and expected side effects as well as potential benefits of the procedure were reviewed. The patient consent form was signed and witnessed. Standard time-out procedure was performed. The use of direct ultrasound visualization of the needle (rather than a non- guided injection) was required to increase patient safety by excluding inadvertent intramuscular, intratendinous, or intraneural needle placement and minimizing bleeding by avoiding osteochondral or vascular injury from the needle. Additionally, the increased accuracy of placement may increase clinical effectiveness and will allow higher diagnostic specificity when evaluating effectiveness of this injection. Procedure Description: The patient was placed in the right lateral recumbant position and automated blood pressure cuff and pulse oximeter applied for monitoring during the procedure and recorded in the medical record. Pre-injection ultrasound scanning of the area of interest was performed using [Pain US TRANSDUCER] transducer, identifying relevant anatomy, landmarks, and neurovascular structures allowing for optimal needle path. The site was then prepared in the usual sterile fashion, using thorough Chlorhexadine preparation of the skin and sterile draping. The same ultrasound transducer was then passed into the sterile field using sterile probe cover and sterile ultrasound gel. The injection target was again visualized. Skin and subcutaneous tissues were anesthetized with 2 mL of 1% Lidocaine. A 21 guage Pajunk ultrasound needle was placed under live ultrasound guidance, using an in-plane approach, to the target area. After visualization of the needle tip at the target area, a mixture of 2 mL 2% Lidocaine and 1/2 cc of Depomedrol (40 mg/cc), totaling 2.5 mL of injectate was delivered after negative aspiration for blood. Ultrasound images were captured and stored for documentation purposes. Post-procedure Pain Score:0/10 Vital signs were stable throughout the procedure and were as recorded in the docflowsheet by the nursing staff. Follow up plans and appointments were discussed with the patient.Post procedure instruction was given as documented in nursing documentation and having met discharge criteria, they were discharged from the Pain Management Center. COMMENTS: She will call back with her 1-4 hour post-procedure pain VAS scores. Jessee Mayers DO, MPH Pain Management
--- NOTE | 2021-02-07 13:49 | DI.US_ITS ---
Exam(s) US PAIN CLINIC NEEDLE GUIDANCE EXAM: NEUROPATHY,M79.2, ULTRASOUND GUIDED TRIGGER INJECTION COMPARISON: No exams were available for comparison TECHNIQUE: Ultrasound performed using standard protocol. FINDINGS: Sonography was provided for Dr. Mayers during the performance of a trigger point injection. Please re sabrina to the procedure report for complete details. DATA REPOSITORY:
--- NOTE | 2021-02-07 13:50 | PDOC.PAIN_ITS ---
Pain Clinic Procedure Note Procedure Note Procedure Note: Left Superior Cluneal Nerve Blocks Asa Pan has been referred to the [facility] Management [facility] for lumbar/sacral medial branch blocks. COMMENTS: Pre-procedure pain VAS was 7/10. DX: Left cluneal nerve neuropathy Patient was interviewed and the medical record reviewed. There were no medical, pharmacologic, radiographic or other structural contraindications to attempting fluoroscopically guided local anesthetic left superior cluneal nerve blocks. Risks and expected side effects as well as potential benefit of the procedure were reviewed and voiced concerns addressed. The printed consent form was signed and witnessed. Standard time-out procedure was performed. Patient was placed in the prone position on the fluoroscopy table and automated blood pressure cuff and pulse oximeter applied. The skin entry points for approaching the anatomic target points of the left superior cluneal nerve were identified with fluoroscopy and marked. Following thorough Chlorhexadine preparation of the skin and draping and 1% lidocaine infiltration of the skin entry points and subcutaneous tissues, a 25 gauge 3.5 spinal needle was placed under fluoroscopic guidance down on to the target point at 3 locations on the iliac crest.Position was confirmed in A/P, oblique and lateral views. At this point 1cc of 2% Lidocaine was injected in these three locations. Vital signs were stable throughout the procedure and were as recorded in the docflowsheet by the nursing staff. Follow up plans and appointments were discussed and was instructed to keep careful note of how the usual pain was modified by these injections. Spe cifically was asked to keep a pain diary for the next 24 hours using a numeric pain scale of 0-10 and report these results at the follow-up visit. Post procedure instruction was given as documented in the nursing documentation and having met discharge criteria. Patient was discharged from the Pain Management Center. COMMENTS: Post-procedure pain VAS 0/10 Jessee Mayers DO, MPH Pain Management CC: Loida Garcia
[2021-02-07] MEDS: Lidocaine 2% Pres-Free 5 ML VIAL IJ (13:55)
[2021-02-07] MEDS: methylPREDNISolone ACETATE 40 MG/ML VIAL IJ (13:55)
== END ==
PROVIDERS: PCP Family Medicine; Visit Provider Preventive Medicine Occupational Medicine
DX: M70.62 Trochanteric bursitis, left hip (principal); G58.8 Other specified mononeuropathies
CPT/HCPCS: 20610; 64450; 72100; 76942; J1030

== ENCOUNTER 2021-04-10 11:01 | Outpatient (CLI) | payer MEDICARE, SELFPAY ==
--- NOTE | 2021-04-10 06:00 | DI.RAD_ITS ---
Exam(s) XR PAIN CLINIC LUMBAR SP 2V EXAM: XR PAIN CLINIC LUMBAR SP 2V CLINICAL HISTORY: DX: Cluneal Neuropathy TECHNIQUE: 2D and realtime digital imaging was performed. CONTRAST MATERIAL: Refer to procedure report. COMPARISON: No exams were available for comparison FINDINGS: Fluoroscopy was provided for Dr. Mayers during the performance of a nerve block. Please refer to the procedure report for complete details. Ka,r=4.54 mGy IMPRESSION:
[2021-04-10 11:09] VITALS: BP 127/73; PULSE 69; RESP 18; TEMP 36.7; O2SAT 100
--- NOTE | 2021-04-10 11:34 | PDOC.PAIN ---
Pain Clinic Procedure Note Procedure Note Procedure Note: Procedure Note Procedure Note: Left Superior Cluneal Nerve Blocks Asa Pan has been referred to the [facility] Management Center for left Superior Cluneal nerve blocks. COMMENTS: Pre-procedure pain VAS was 6/10. DX: Left cluneal nerve neuropathy Patient was interviewed and the medical record reviewed. There were no medical, pharmacologic, radiographic or other structural contraindications to attempting fluoroscopically guided local anesthetic left superior cluneal nerve blocks. Risks and expected side effects as well as potential benefit of the procedure were reviewed and voiced concerns addressed. The printed consent form was signed and witnessed. Standard time-out procedure was performed. Patient was placed in the prone position on the fluoroscopy table and automated blood pressure cuff and pulse oximeter applied. The skin entry points for approaching the anatomic target points of the left superior cluneal nerve were identified with fluoroscopy and marked. Following thorough Chlorhexadine preparation of the skin and draping and 1% lidocaine infiltration of the skin entry points and subcutaneous tissues, a 25 gauge 3.5 spinal needle was placed under fluoroscopic guidance down on to the target point at 3 locations on the iliac crest.Position was confirmed in A/P, oblique and lateral views. At this point 1/3 cc of Dexamethasone (10 mg/cc) was injected at each site and this was flushed with 2 cc of 0.5% Bupivacaine at each of the these three locations. The needles were removed without difficulty. Vital signs were stable throughout the procedure and were as recorded in the docflowsheet by the nursing staff. Follow up plans and appointments were discussed and was instructed to keep careful note of how the usual pain was modified by these injections. Specifically was asked to keep a pain diary for the next 24 hours using a numeric pain scale of 0-10 and report these results at the follow-up visit. Post procedure instruction was given as documented in the nursing documentation and having met discharge criteria. Patient was discharged from the Pain Management Center. COMMENTS: Post-procedure pain VAS 0/10 Jessee Mayers DO, MPH [facility]-Pain Management CC: Loida Garcia
[2021-04-10 11:39] VITALS: BP 138/66; PULSE 68; RESP 18; O2SAT 98
[2021-04-10] MEDS: Bupivacaine 0.5% Pres-Free 10 ML VIAL IJ (11:41)
[2021-04-10] MEDS: Dexamethasone Sod. Phos./Pres-Free 10 MG/ML VIAL (11:41)
== END 2021-04-10 11:02 | disposition home or self-care (01) ==
LOC: PC 11:01
PROVIDERS: PCP Family Medicine; Visit Provider Preventive Medicine Occupational Medicine
DX: G58.8 Other specified mononeuropathies (principal)
CPT/HCPCS: 64450; 72100

== ENCOUNTER 2021-07-18 08:05 | Outpatient (CLI) | payer MEDICARE, SELFPAY ==
--- NOTE | 2021-07-18 06:00 | DI.RAD_ITS ---
Exam(s) XR PAIN CLINIC LUMBAR SP 2V EXAM: XR PAIN CLINIC LUMBAR SP 2V CLINICAL HISTORY: Dx: Lumbar Spondylosis TECHNIQUE: 2D and realtime digital imaging was performed. Radiologist not present. CONTRAST MATERIAL: None. COMPARISON: No exams were available for comparison FINDINGS: Fluoroscopy was provided for pain management therapy. Please refer to procedure report or details. Cumulative dose: Ka,r=25.92 mGy IMPRESSION: RADIATION DOSE DELIVERED:
[2021-07-18 08:20] VITALS: BP 130/66; PULSE 73; RESP 18; TEMP 36.5; O2SAT 98
[2021-07-18] MEDS: fentaNYL 100 MCG/2 ML VIAL IVP ×2 (08:53→08:55)
[2021-07-18] MEDS: Midazolam 2 MG/2 ML VIAL IVP (08:54)
[2021-07-18] MEDS: Lactated Ringers 1,000 ML 80 ML IV (08:55)
--- NOTE | 2021-07-18 09:31 | PDOC.PAIN ---
Pain Clinic Procedure Note Procedure Note Procedure Note: [Right/Left/Bilateral] Lumbar Radiofrequency with Coolief Machine PROCEDURE NOTE Date of Service: July 18, 2021 Patient: Asa Pan Provider: Jessee Mayers DO, MPH Pre Operative Diagnosis: Lumbosacral Spondylosis without Myelopathy Post Operative Diagnosis: Same Post procedure pain; VAS= 6/10 PROCEDURE: Radiofrequency Ablation of medial branches - Bilateral L3 L4 L5DR and lateral branches of bilateral S1. Asa Pan was brought into the fluoroscopy suite and positioned into the prone position on the fluoroscopy table and allowed to adjust to a position of comfort. A grounding pad was placed on the right thigh. The lumbar region was widely prepped with a chloraprep solution, allowed to air dry and draped in standard sterile surgical fashion. Local anesthesia was provided by 5 mL of 2 % Lidocaine delivered with a 25g needle. A 17g 100 mm radiofrequency introducer needle was placed to the planned anatomic targets guided with intermittent fluoroscopy with a perpendicular approach to terminally place at the junction of the superior articular process and the transverse process of the bilateral L3 L4 L5, the base of the sacral ala on the bilateral for the L5 medial branch nerve and the area between base of the sacral ala to the S1 foramen bilaterally. The stylets were removed and radiofrequency probes with a 4mm active tip were then inserted. Needle tip position of the probes was verified in the AP, oblique, and lateral views. At each site, the medial branch nerve was stimulated at 2 Hz to a maximum 1-2 volts determined to finalize safe needle and electrode placement. The patient was awake and responsive during this portion of the procedure. Each target was anesthetized with 1-2 mL of 2% Lidocaine for anesthesia for lesioning and then each target was lesioned at 80 degrees Celsius for 2 minutes and 30 seconds. Tissue impedences were noted to be between 250 and 500 Ohms. Electrodes and needles were then removed and bandages placed over the needle placement sites, the patient then returned to the supine position on a stretcher and transported to the recovery room without hemodynamic, neurologic, or allergic reactions. Fluoroscopic images were printed for hard copy recording and digitally archived. POST PROCEDURE EVALUATION: IMPRESSION: 1. Summary of procedure. Medication given is documented in the MAR. 2. The patient will be contacted in 1-3 weeks 3. Estimated Blood Loss: <5 mls 4. Fluoroscopy time: Documented in the EMR. Follow up plans and appointments were discussed with the Asa . Post procedure instruction was given as documented in nursing documentation and having met discharge criteria, Asa was discharged from the Pain Management Center. COMMENTS: No apparent complications. Post-procedure pain: VAS= 0/10. F/U with our office as needed. I personally performed this entire procedure. Jessee Mayers DO, MPH Attending Physician Pain Management
[2021-07-18] MEDS: Lidocaine 2% Pres-Free 5 ML VIAL IJ (09:33)
[2021-07-18] MEDS: methylPREDNISolone ACETATE 40 MG/ML VIAL IJ (09:33)
[2021-07-18] MEDS: Bupivacaine 0.5% Pres-Free 10 ML VIAL IJ (09:34)
== END 2021-07-18 08:06 | disposition home or self-care (01) ==
LOC: PC 08:05
PROVIDERS: PCP Family Medicine; Visit Provider Preventive Medicine Occupational Medicine
DX: M47.817 Spondylosis without myelopathy or radiculopathy, lumbosacral region (principal)
CPT/HCPCS: 64635; 64636; 72100; J1030; J2250; J3010

== ENCOUNTER 2025-04-20 13:12 | Outpatient (CLI) | payer MEDICARE, SELFPAY ==
--- NOTE | 2025-04-20 06:00 | DI.RAD_ITS ---
Exam(s) XR PAIN CLINIC SACRIOILIAC 2V EXAM: XR PAIN CLINIC SACRIOILIAC 2V CLINICAL HISTORY: DX: Sacroiliac Dysfunction. TECHNIQUE: Fluoroscopy was provided for the referring physician for guidance with performing pain clinic injection procedure. COMPARISON: No exams were available for comparison FINDINGS: Please see procedure note for details. Fluoro time: 19 seconds RADIATION DOSE DELIVERED: Ka,r=5.39 mGy
[2025-04-20 13:28] VITALS: BP 158/64; PULSE 68; RESP 20; TEMP 37; O2SAT 100
[2025-04-20 14:04] VITALS: PULSE 81; PULSE 82; RESP 14; O2SAT 96
[2025-04-20 14:05] VITALS: BP 198/74; PULSE 79; PULSE 80; RESP 18; O2SAT 97
[2025-04-20 14:10] VITALS: PULSE 80; RESP 18; O2SAT 96
[2025-04-20 14:18] VITALS: BP 207/80; PULSE 83
--- NOTE | 2025-04-20 14:18 | PDOC.PAIN_ITS ---
Date of service: 04/20/25 Time of Service: 14:18 Pain Managment Procedure Note Procedure Note Procedure Note: PROCEDURE NOTE BILATERAL INTRA-ARTICULAR SACROILIAC JOINT INJECTION Date of Service: April 20, 2025 Patient: Asa Pan Provider: Jessee Mayers DO, MPH COMMENTS: I previously evaluated the patient in the office and their symptoms in relation to the sacroiliac joint pain have remained the same. She is allergic to contrast, thus none was used. Pre-operative diagnosis: Sacroiliac joint dysfunction ICD-10 M53.3 Post-operative diagnosis: Same Pre-procedure pain: VAS= 7/10 Asa Pan has been referred to our [facility] for a Bilateral intra-articular Sacroiliac joint injection. Asa was interviewed and the medical record reviewed. There were no medical, pharmacologic, radiographic or other structural contraindications to attempting a fluoroscopically-guided intra-articular Sacroiliac joint injection. The risks, benefits, and potential side effects of this procedure were reviewed with the patient. Questions and concerns were addressed. After it was clear that Asa was fully informed about the procedure, the printed consent form was signed by the patient and myself. Asa was placed in the prone position on the fluoroscopy table and an automated blood pressure cuff, 3 lead EKG, and pulse oximeter were applied. The skin entry point for approaching the Left sacroiliac joint was identified under the most advantageous fluoroscopic view and marked. Following thorough Chlorhexadine pre paration of the skin and draping with sterile surgical drapes, 2 mls of 1% lidocaine was infiltrated into the skin at the entry point and the surrounding subcutaneous tissues. Next, a 3.5 22G spinal needle was placed under fluoroscopic guidance into the Left sacroiliac joint. Intra-articular placement was confirmed by x-ray. Next, 1 ml of Depo- Medrol 40 mg/ml was injected intra- articularly with an initial reproduction of a significant component of the usual pain. This was followed with 1 ml of 1% Lidocaine. The needle was then removed without difficulty. (49 ml of Omnipaque-240 was wasted). The exact procedure was completed on the opposite sacroiliac joint. Amys vital signs were stable throughout the procedure and were as recorded in nursing records. Follow up plans and appointments were discussed with Asa. Post procedure instructions were given as documented in nursing records. Having met discharge criteria, As[facility] was [facility] the [facility] COMMENTS: Post-procedure pain: VAS= 2/10. If the patient receives at least 50% improvement in pain and/or function for at least 3 months, this procedure can be repeated if needed. I personally performed this entire procedure. JESSEE MAYERS DO, MPH ABPMR-subspecialty board certification in Pain Medicine [facility] Coding Conscious Sedation used for procedure: No CPT Codes: SI Joint Inj; incl Fluoro * BILATERAL* - [id number] ([id number]) Additional Codes: Date of Service () Diagnoses: sacroiliac joint dysfunction
[2025-04-20 14:20] VITALS: BP 189/68; PULSE 77
[2025-04-20] MEDS: methylPREDNISolone ACETATE 40 MG/ML VIAL IJ (14:24)
[2025-04-20] MEDS: Nerve Block Tray 1 EACH MC (14:24)
== END 2025-04-20 13:13 | disposition home or self-care (01) ==
LOC: PC 13:12
PROVIDERS: PCP Family Medicine; Visit Provider Preventive Medicine Occupational Medicine
DX: M54.50 Low back pain, unspecified (principal); M53.3 Sacrococcygeal disorders, not elsewhere classified
CPT/HCPCS: 27096; 72200; J1010